=== PATIENT | female | born 1950 | race Caucasian/White ===

== ENCOUNTER 2023-05-05 18:15 | Outpatient (REF) | payer MEDICARE, MEDICAID, SELFPAY ==
[2023-05-05 14:37] LABS: HCT 41.9 % (36.0-46.0); HGB 13.1 g/dL (11.2-15.7); MCH 25.6 pg (27.0-33.0); MCHC 31.3 % (32.0-36.0); MCV 82 fL (80-95); MPV 10.2 fL (8.0-11.0); Platelet Count 255 10^3/uL (130-400); RBC 5.11 10^6/uL (3.93-5.22); RDW 13.6 % (11.7-14.6); RDW-SD 40.3 fL; WBC 9.18 10^3/uL (4.4-10.8)
[2023-05-05 15:27] LABS: ALT 19 U/L (14-59); AST 17 U/L (15-37); Albumin 3.9 g/dL (3.4-5.0); Alkaline Phosphatase 104 U/L (46-116); Anion Gap 7.6 mmol/L (3-11); BUN 13 mg/dL (7-18); Bilirubin, Total 0.5 mg/dL (0.2-1.0); CO2 29.4 mmol/L (21.0-32.0); CREATININE 1.2 mg/dL (0.55-1.02); Calcium 9.5 mg/dL (8.5-10.1); Calculated LDL 108 mg/dL (<100); Chloride 102 mmol/L (98-107); Cholesterol 185 mg/dL (<200); Glucose 92 mg/dL (74-106); HDL Cholesterol 59 mg/dL (40-60); Potassium 4.2 mmol/L (3.5-5.1); Sodium 139 mmol/L (136-145); TSH 0.63 uIU/mL (0.36-3.74); Total Protein 8.2 g/dL (6.4-8.2); Triglyceride 91 mg/dL (<150)
[2023-05-05 15:29] LABS: Hemoglobin A1C 5.9 % (<5.7)
== END 2023-05-05 18:16 | disposition home or self-care (01) ==
LOC: NCHCN 18:15
PROVIDERS: PCP Family Medicine; Visit Provider Family Medicine
DX: I10 Essential (primary) hypertension (principal); R53.83 Other fatigue; R73.9 Hyperglycemia, unspecified; E66.01 Morbid (severe) obesity due to excess calories
CPT/HCPCS: 80053; 80061; 85027; 83036; 84443

== ENCOUNTER 2024-06-13 16:00 | Outpatient (REF) | payer MEDICARE, MEDICAID, SELFPAY ==
[2024-06-13 15:07] LABS: HCT 42.7 % (36.0-46.0); HGB 13.7 g/dL (11.2-15.7); MCH 26.9 pg (27.0-33.0); MCHC 32.1 % (32.0-36.0); MCV 84 fL (80-95); MPV 10.4 fL (8.0-11.0); Platelet Count 256 10^3/uL (130-400); RBC 5.09 10^6/uL (3.93-5.22); RDW 13.7 % (11.7-14.6); RDW-SD 42.3 fL; WBC 9.12 10^3/uL (4.4-10.8)
[2024-06-13 15:35] LABS: Anion Gap 10.3 mmol/L (3-11); BUN 29 mg/dL (7-18); CO2 24.7 mmol/L (21.0-32.0); CREATININE 1.6 mg/dL (0.55-1.02); Calcium 9.1 mg/dL (8.5-10.1); Chloride 105 mmol/L (98-107); Estimated GFR 33.42 (mL/min/1.73m2); FREE T4 1.23 ng/dL (0.76-1.46); Glucose 106 mg/dL (74-106); Potassium 4.8 mmol/L (3.5-5.1); Sodium 140 mmol/L (136-145); TSH 0.64 uIU/mL (0.36-3.74)
[2024-06-13 15:48] LABS: Calculated LDL 76 mg/dL (<100); Cholesterol 141 mg/dL (<200); HDL Cholesterol 48 mg/dL (40-60); Triglyceride 85 mg/dL (<150)
== END 2024-06-13 16:01 | disposition home or self-care (01) ==
LOC: NCHCN 16:00
PROVIDERS: PCP Family Medicine; Visit Provider Family Medicine
DX: I10 Essential (primary) hypertension (principal)
CPT/HCPCS: 80048; 80061; 85027; 84439; 84443

== ENCOUNTER 2024-10-03 13:50 | Outpatient (REF) | payer MEDICARE, MEDICAID, SELFPAY | END 2024-10-03 13:51 | disposition home or self-care (01) | LOC: NCHCN 13:50 | PROVIDERS: PCP Family Medicine; Visit Provider Family Medicine | DX: R30.0 Dysuria (principal) | CPT/HCPCS: 87077; 87086; 87186 ==

== ENCOUNTER 2025-02-10 18:38 | Outpatient (REF) | payer MEDICARE, MEDICAID, SELFPAY | END 2025-02-10 18:39 | disposition home or self-care (01) | LOC: NCHCN 18:38 | PROVIDERS: PCP Family Medicine; Visit Provider Nurse Practitioner Family | DX: R39.9 Unspecified symptoms and signs involving the genitourinary system (principal) | CPT/HCPCS: 81015 ==

== ENCOUNTER 2025-03-11 15:04 | Outpatient (REF) | payer MEDICARE, MEDICAID, SELFPAY ==
[2025-03-11 15:16] LABS: Anion Gap 9.5 mmol/L (3-11); BUN 13 mg/dL (7-18); CO2 26.5 mmol/L (21.0-32.0); Calcium 8.8 mg/dL (8.5-10.1); Chloride 104 mmol/L (98-107); Estimated GFR 42.88 (mL/min/1.73m2); Glucose 93 mg/dL (74-106); Potassium 4.4 mmol/L (3.5-5.1); Sodium 140 mmol/L (136-145)
== END 2025-03-11 15:05 | disposition home or self-care (01) ==
LOC: NCHCN 15:04
PROVIDERS: PCP Family Medicine; Visit Provider Family Medicine
DX: N17.9 Acute kidney failure, unspecified (principal)
CPT/HCPCS: 80048